=== PATIENT | male | born 1985 | race African-American/Black ===

== ENCOUNTER → 2016-07-21 | Outpatient (CLI) | payer OTHER ==
[2016-07-22 07:44] LABS: HIV-1/HIV-2 Ab Screen NONREAC (NON REAC)
[2016-08-01 12:41] LABS: Mis test requested (Non-blood) MYCOPLAS GENITALIUM
== END ==
LOC: LABWHC1 11:08
PROVIDERS: ATTEND Internal Medicine Infectious Disease
DX: N34.1 Nonspecific urethritis (principal)
CPT/HCPCS: 36415; 87389; 87491; 87591; 87661; 87798